=== PATIENT | male | born 1960 | race Two or more races ===

== ENCOUNTER 2024-03-21 12:46 | Emergency (ER) | payer MEDICARE, OTHER ==
[~2024-03-21] VITALS: Ht 167.6 cm; Wt 79.0 kg
[2024-03-21 12:51] VITALS: TEMP 98
[2024-03-21] MEDS ORDERED: IBUP-1506 PO (15:50)
[2024-03-21] MEDS: IBUPROFEN 400 MG TABLET PO ONE (16:10)
[2024-03-21 16:19] VITALS: BP 128/92; PULSE 91; RESP 20
== END 2024-03-21 16:24 | disposition home or self-care (01) ==
LOC: EMS 12:46
DX: S89.91XA Unspecified injury of right lower leg, initial encounter (principal); E11.9 Type 2 diabetes mellitus without complications; X58.XXXA Exposure to other specified factors, initial encounter; Y93.01 Activity, walking, marching and hiking; Y92.89 Other specified places as the place of occurrence of the external cause; Y99.8 Other external cause status
CPT/HCPCS: 82962; 99283